=== PATIENT | male | born 1980 | race Caucasian/White ===

== ENCOUNTER 2021-11-24 17:52 | Emergency (ER) | payer MEDICAID ==
[~2021-11-24] VITALS: Ht 188 cm; Wt 123.0 kg
--- NOTE | 2021-11-24 19:52 | NUR ---
Pt pink, alert, no acute/resp distress. Friend at bedside. Warm blankets provided. Pt sitting on side of bed, bed in lowest position, wheels locked.
[2021-11-24] MEDS ORDERED: sulfamethoxazole/trimethoprim DS (800/160mg) tablet PO ONE (21:25)
[2021-11-24] MEDS ORDERED: ibuprofen tablet 400 MG TABLET PO ONE (21:25)
[2021-11-24] MEDS ORDERED: SULF1TAB49 PO (21:32)
[2021-11-24 21:41] VITALS: BP 120/80
== END 2021-11-24 21:43 | disposition home or self-care (01) ==
LOC: ER 17:53
DX: L02.33 Carbuncle of buttock (principal); L02.32 Furuncle of buttock; M79.605 Pain in left leg; E11.9 Type 2 diabetes mellitus without complications; Z79.2 Long term (current) use of antibiotics
CPT/HCPCS: 99283

== ENCOUNTER 2022-10-22 05:32 | Day surgery (SDC) | payer MEDICAID ==
[2022-10-15 14:22] LABS: BASOPHILS % (AUTO) 0.5 % (0-1); EOSINOPHILS # (AUTO) 0.3 X10'3 (0-0.9); LYMPHOCYTES # (AUTO) 1.3 X10'3 (1.1-4.8); LYMPHOCYTES % (AUTO) 20.4 % (21-51); MEAN CORPUSCULAR HEMOGLOBIN 26.5 PG (27.0-31.0); MEAN CORPUSCULAR HGB CONC 32.6 g/dL (33.0-36.5); MEAN CORPUSCULAR VOLUME 81.4 FL (78-98); MEAN PLATELET VOLUME 9.3 FL (7.4-10.4); MONOCYTES # (AUTO) 0.6 X10'3 (0-0.9); MONOCYTES % (AUTO) 9.4 % (2-12); NEUTROPHILS # (AUTO) 4.3 X10'3 (1.8-7.7); NEUTROPHILS % (AUTO) 65.7 % (42-75); PRE OP HEMATOCRIT 45.3 % (42.0-52.0); PRE OP HEMOGLOBIN 14.8 g/dL (14.0-17.9); PRE OP PLATELET COUNT 216 X10'3 (140-440); RED BLOOD COUNT 5.57 X10'6 (4.70-6.10); RED CELL DISTRIBUTION WIDTH 15.4 % (11.5-14.5)
[2022-10-15 14:40] LABS: ALBUMIN 3.7 G/DL (3.4-5.0); ALKALINE PHOSPHATASE 46 IU/L (46-116); BLOOD UREA NITROGEN 9 MG/DL (7-18); BUN/CREATININE RATIO 10.2 (5.4-32.0); CALCIUM 9.1 MG/DL (8.5-10.1); CHLORIDE 109 MMOL/L (99-107); CREATININE 0.88 MG/DL (0.60-1.10); PRE OP ALT 25 U/L (30-65); PRE OP ANION GAP 4 (8-16); PRE OP AST 21 U/L (10-37); PRE OP BILIRUB, TOTAL 0.8 MG/DL (0.0-1.0); PRE OP GLUCOSE 129 MG/DL (70-104); PRE OP POTASSIUM 3.9 MMOL/L (3.4-5.1); PRE OP SODIUM 140 MMOL/L (135-145); TOTAL PROTEIN 7.4 G/DL (6.4-8.2); eGFR > 90 ML/MIN
[2022-10-22] VITALS (9 sets, daily range): BP systolic 131–163; BP diastolic 74–105
[~2022-10-22] VITALS: Ht 177.8 cm; Wt 76.9 kg
[~2022-10-22 05:32] MED LIST: ASCO-134 PO; DULA1.5P SQ; GLIM2TAB6 PO; HYDR50TA65 PO; MULT-1085 PO; PIOG30TA72 PO; clindamycin-Cleocin 900mg/D5W 50 ML IV ONE; famotidine 20mg tablet PO ONE; ringers solution, lacted 1,000 ML IV SCH
[2022-10-22] MEDS ORDERED: morphine 2 MG/ML inj. syringe IV PRN (08:10)
[2022-10-22] MEDS ORDERED: morphine 4 MG/ML inj SYRINge IV PRN (08:10)
[2022-10-22] MEDS ORDERED: ringers solution, lacted 1,000 ML IV SCH (08:10)
[2022-10-22] MEDS ORDERED: ondansetron/PF 4mg/2ml inj IV PRN (08:10)
[2022-10-22] MEDS ORDERED: proCHLORperazine 10 MG/2 ml inj IV PRN (08:10)
[2022-10-22] MEDS ORDERED: meperidine/PF 25mg/ml syringe IV PRN ×3 (08:10)
[2022-10-22] MEDS ORDERED: midazolam 1 mg/ML 2ml injection ONE (09:20)
[2022-10-22] MEDS ORDERED: fentaNYL/PF 50MCG/1 ML 2ML syringe ONE (09:20)
[2022-10-22] MEDS ORDERED: propofol inj 20 ML IV ONE (09:20)
[2022-10-22] MEDS ORDERED: sevoflurane 250ml liquid IH ONE (09:21)
[2022-10-22] MEDS ORDERED: BUPIVACAINE liposomal/PF 13.3 MG/ML vial IM ONE (09:26)
[2022-10-22] MEDS ORDERED: BUPIVAcaine/PF 5 mg/ml 10ml ONE (09:26)
[2022-10-22] MEDS ORDERED: HYDROcodone/acetaminophen 10/325mg tab PO PRN (10:50)
--- NOTE | 2022-10-22 10:55 | NUR ---
Received from OR via BED, accompanied by Anesthesiologist and report given by Anesthesiologist. PATIENT WAKING UP, NO S/S OF PAIN, V/S WNL, SCD ON, 20G TO LUE, RIGHT drsg to shoulder-CDI SLING ON
--- NOTE | 2022-10-22 12:05 | NUR ---
PATIENT A&OX4, C/O PAIN 10/11 SEE NELDAR, V/S WNL, SCD OFF, 20G TO LUE D/C, RIGHT drsg to shoulder-CDI SLING ON . I HAVE REVIEWED D/C INSTRUCTIONS WITH PATIENT and they have verbalized understanding patient d/c home with all belongings and family gave transport home.
== END 2022-10-22 12:05 | disposition home or self-care (01) ==
LOC: PAS 05:32
PROVIDERS: ATTEND Orthopaedic Surgery
DX: M75.41 Impingement syndrome of right shoulder (principal); M19.011 Primary osteoarthritis, right shoulder; M75.51 Bursitis of right shoulder; E11.52 Type 2 diabetes mellitus with diabetic peripheral angiopathy with gangrene; E66.9 Obesity, unspecified; Z68.38 Body mass index [BMI] 38.0-38.9, adult; G89.18 Other acute postprocedural pain; Z88.0 Allergy status to penicillin; Z91.013 Allergy to seafood; Z88.8 Allergy status to other drugs, medicaments and biological substances; Z79.899 Other long term (current) drug therapy; Z79.4 Long term (current) use of insulin; Z79.01 Long term (current) use of anticoagulants; Z98.890 Other specified postprocedural states
CPT/HCPCS: 29824; 29826; 36415; 64415; 80053; 82948; 85025; 93005; C9290; J2250; J2704; J3010; J3490; J7120; Z7506; Z7508; Z7512; A4565; A4618; A6449; A7000